=== PATIENT | male | born 1975 ===

== ENCOUNTER 2017-01-14 07:39 | Emergency (ER) | payer BC ==
[2017-01-14 12:26] LABS: Hematocrit 47 % (42-52); Hemoglobin 15.6 g/dl (14.0-18.0); Mean Corpuscular HGB Conc 34 g/dl (31-36); Mean Corpuscular Hemoglobin 30 pg (27-31); Mean Corpuscular Volume 89 fL (80-94); Mean Platelet Volume 8 um3 (7.4-10.4); Red Blood Count 5.24 10^6/ul (4.0-5.4); Red Cell Distribution Width 13 % (10.5-15)
[2017-01-14 12:44] LABS: Anion Gap 5 mmol/L (2-11); BUN/Creatinine Ratio 9.6 (8-20); Blood Urea Nitrogen 9 mg/dL (6-24); C Reactive Protein < 1.00 mg/L (< 5.00); CO2 Carbon Dioxide 28 mmol/L (22-32); Calcium 9.5 mg/dL (8.6-10.3); Chloride 102 mmol/L (101-111); EGFR African American 112.6 (>60); EGFR Non-African American 87.6 (>60); Glucose 92 mg/dL (70-100); Sodium 135 mmol/L (133-145)
[2017-01-14 13:53] LABS: Erythrocyte Sed Rate 5 mm/Hr (0-14)
[2017-01-15 16:00] LABS: Varicella IgG Antibody Index 6.5; Varicella-Zoster IgG Antibody Positive
[2017-01-15 23:12] LABS: Varicella-Zoster IgM Antibody Negative (Negative)
--- NOTE | 2017-02-08 11:24 | UC ---
Fracisco Farrar Angela, scribed for Lynn Valdes MD on 01/14/17 at 0801 . Skin Complaint HPI - HPI Summary HPI Summary: This pt is a 41 y/o male presenting to [facility] c/o erythematous bumpy rash on the right side of his face since last night. He states it felt "weird" yesterday and had a headache. Pt states he began to feel "like I bumped my head and had a tiny bump on my head" 4 days ago. He had a fever last night of 101.5 F. Pt additionally c/o pain radiating down his neck for 4 days. He denies any recent travel or being sick besides these past 4 days. He has been under stress lately. He states he had chicken pox when he was in 6th or 7th grade. Pt denies getting cold sores. Pt has no PCP. He denies any PMHx. - History of Current Complaint Chief Complaint: UCRash Stated Complaint: RASH Hx Obtained From: Patient Onset/Duration: Lasting Days, Still Present Skin Exposure Onset/Duration: Days Ago Timing: Constant Location: Face - right side Character: Redness, Raised Associated Signs & Symptoms: Positive: Fever, Rash - headache and neck pain. - Allergy/Home Medications Allergies/Adverse Reactions: Allergies Allergy/AdvReac Type Severity Reaction Status Date / Time No Known Allergies Allergy Verified 01/14/17 07:45 Review of Systems Constitutional: Fever Skin: Rash Eyes: Negative ENT: Negative Respiratory: Negative Cardiovascular: Negative Gastrointestinal: Negative Genitourinary: Negative Motor: Negative Neurovascular: Negative Musculoskeletal: Other: - neck pain Neurological: Headache Psychological: Negative Is Patient Immunocompromised?: No All Other Systems Reviewed And Are Negative: Yes PMH/Surg Hx/FS Hx/Imm Hx Other Endocrine History: DENIES: diabetes Other Cardiovascular History: DENIES: HTN - Surgical History Surgical History: None - Family History Known Family History: Negative: Diabetes - Social History Occupation: Employed Full-time Alcohol Use: Occasionally Substance Use Type: None Smoking Status (MU): Never Smoked Tobacco Physical Exam Triage Information Reviewed: Yes Appearance: Well-Nourished Vital Signs: Initial Vital Signs Temp 99.7 F 01/14/17 07:45 Pulse 88 01/14/17 07:45 Resp 16 01/14/17 07:45 BP 145/86 01/14/17 07:45 Pulse Ox 99 01/14/17 07:45 Vital Signs Reviewed: Yes Eye Exam: Normal ENT Exam: Other - TM's dull. Oropharynx benign. R forehead scap and forehead with several lesions and rash, c/w V. Zoster. Close eye inspection indicates no current eyelid involvemen, no eye pain / redness / drainage. ENT: Positive: TM dull Neck exam: Normal Neck: Positive: Supple, Nontender, No Lymphadenopathy Respiratory: Positive: Chest non-tender, Lungs clear, Normal breath sounds, No respiratory distress, No accessory muscle use Cardiovascular: Positive: RRR, No Murmur, Pulses Normal, Brisk Capillary Refill Abdominal Exam: Normal Abdomen Description: Positive: Nontender, No Organomegaly, Soft Bowel Sounds: Positive: Present Musculoskeletal Exam: Normal Musculoskeletal: Positive: Strength Intact - moves all 4 ext's Neurological Exam: Normal - nonfocal, grossly intact Psychological Exam: Normal - conversing easily and appropriately. Skin: Positive: rashes Course/Dx - Course Course Of Treatment: Elevated BP noted. Reviewed with pt s/sx and coa / tx plan. H. Zoster most likely. Reviewed need for f/u with pcp, and seek eye doctor f/u if rash approaches eyelid. Questions as posed answered to the best of my ability. - Diagnoses Provider Diagnoses: H. Zoster scalp forehead Right Discharge - Discharge Plan Condition: Stable Disposition: HOME Prescriptions: Ibuprofen TAB* [Motrin TAB* 600 MG] 600 mg PO Q8H PRN #30 tab PRN Reason: Pain ValACYclovir (*) [Valtrex 1 GM(*)] 1 gm PO TID #30 tab Patient Education Materials: Shingles (ED) Referrals: [facility] [place] [facility] [Outside] Maribel Fuentes MD [Primary Care Provider] - Santos Leong MD [Medical Doctor] - Additional Instructions: Follow up with primary care provider as sooon as possible - recommmend in the next 1-2 weeks if possible. Follow up with eye doctor if sores approach your eye / eyelid area. Seek medical attention for worse or new problems in the meantime. The documentation as recorded by the Fracisco estevez Angela accurately reflects the service I personally performed and the decisions made by me, Lynn Valdes MD.
== END 2017-01-14 08:38 | disposition home or self-care (01) ==
LOC: UCEAST 07:39
DX: B02.9 Zoster without complications (principal)
CPT/HCPCS: 36415; 80048; 85025; 85652; 86140; 86618; 86787; 99202; G0463